=== PATIENT | female | born 1930 | race African-American/Black ===

== ENCOUNTER 2016-10-06 17:19 | Inpatient (IN) | payer OTHER ==
[~2016-10-06] VITALS: Ht 154.9 cm; Wt 49.6 kg
[~2016-10-06 17:19] MED LIST: LEVO88TA2 PO; LISI-604 PO; METF500T4 PO; NIFE90TA2 PO; SIMV20TA6 PO
[2016-10-06] MEDS ORDERED: SODIUM CHLORIDE 0.9% 1,000 ML IV ONE (18:38)
[2016-10-06] MEDS ORDERED: LORAZEPAM 2MG/ML CPJ IV ONE (18:45)
[2016-10-06 19:34] LABS: BASOPHILS % 0.4 % (0.0-2.0); EOSINOPHILS % 0.3 % (0.0-5.0); HEMATOCRIT. 30.5 % (36.0-48.0); HEMOGLOBIN. 10.1 g/dL (12.0-16.0); LYMPHOCYTES % 9.6 % (20.0-50.0); MEAN CORPUSCULAR HEMOGLOBIN 30.9 pg (28.0-32.0); MEAN CORPUSCULAR VOLUME 93.6 fL (81.0-99.0); MEAN PLATELET VOLUME 7.8 fl (7.4-10.4); MONOCYTES % 9.7 % (2.0-8.0); PLATELET 370 x1000/uL (130-400); RED BLOOD CELL COUNT 3.26 mill/uL (4.2-5.4); RED CELL DISTRIBUTION WIDTH 13.4 % (11.6-14.6)
[2016-10-06] MEDS ORDERED: ASPIRIN 300MG SUPP PR ONE (19:45)
[2016-10-06 19:48] LABS: AMMONIA 17 uMol/L (<32)
[2016-10-06 19:54] LABS: CARBON DIOXIDE 23 mEq/L (21-32); CHLORIDE 93 mEq/L (98-107); CREATINE KINASE 120 IU/L (26-192); ETHANOL BLOOD < 10 mg/dL
[2016-10-06] MEDS ORDERED: SODIUM BICARBONATE 8.4% 1 MEQ/ML 50ML SYR IV ONE (20:00)
[2016-10-06] MEDS ORDERED: CALCIUM CHLORIDE 1GM/10ML SYR IV ONE (20:00)
[2016-10-06] MEDS ORDERED: DIGOXIN 500MCG/2ML AMP IV NR (20:00)
[2016-10-06] MEDS ORDERED: SODIUM POLYSTYRENE SULFONATE 15 G/60 ML BOT PR ONE (20:00)
[2016-10-06 20:29] LABS: T4 FREE 1.7 ng/dL (0.76-1.46)
[2016-10-06] MEDS ORDERED: ACETAMINOPHEN 325MG TABLET PO PRN (20:45)
[2016-10-06] MEDS ORDERED: GUAIFENESIN 200MG/10ML SUGAR FREE UDC PO PRN (20:45)
[2016-10-06] MEDS ORDERED: DOCUSATE SODIUM 100MG CAPSULE PO PRN (20:45)
[2016-10-06] MEDS ORDERED: NITROGLYCERIN 0.4MG TABLET SL SL PRN (20:45)
[2016-10-06] MEDS ORDERED: ONDANSETRON HCL 4MG/2ML VIAL IV PRN (20:45)
[2016-10-06] MEDS ORDERED: CLONIDINE 0.1MG TABLET PO PRN (20:45)
[2016-10-06] MEDS ORDERED: IPRATROPIUM/ALBUTEROL 0.5-3(2.5)MG/3ML NEB INH PRN (20:45)
[2016-10-06] MEDS ORDERED: TRAMADOL 50MG TABLET PO PRN (20:45)
[2016-10-06] MEDS ORDERED: NA PHOS,M-B/NA PHOS,DI-BA ENEMA 118ML PR PRN (20:45)
[2016-10-06] MEDS ORDERED: MAGNESIUM/ALUMINUM HYDROXIDE/SIMETHICONE 30ML UDC PO PRN (20:45)
[2016-10-06 20:49] LABS: FOLIC ACID (FOLATE) SERUM 15.8 ng/mL (>5.38)
[2016-10-06] MEDS ORDERED: DEXTROSE 50% WATER 50ML SYRINGE IV PRN (21:35)
[2016-10-06] MEDS ORDERED: ENOXAPARIN 30MG/0.3ML SYR SUBCUT SCH (23:00)
[2016-10-06 23:30] VITALS: BP 154/88
[2016-10-06] MEDS ORDERED: FAMOTIDINE 20MG/2ML VIAL IV SCH (23:30)
[2016-10-06] MEDS: SODIUM CHLORIDE 0.9% 1,000 ML IV SCH (23:44)
[2016-10-06 23:55] LABS: TROPONIN I 0.15 ng/mL (0.00-0.04)
[2016-10-07] VITALS (11 sets, daily range): BP systolic 101–160; BP diastolic 52–96
[2016-10-07] MEDS ORDERED: LEVOFLOXACIN 500MG PREMIX 100 ML IV NR (02:00)
[2016-10-07 07:00] LABS: TROPONIN I 0.23 ng/mL (0.00-0.04)
[2016-10-07] MEDS: INSULIN LISPRO 100 UNITS/ML SUBCUT SCH ×2 (08:00→11:08)
[2016-10-07] MEDS: BLOOD SUGAR DIAGNOSTIC STRIP TEST SCH ×2 (08:18→11:08)
[2016-10-07] MEDS ORDERED: ASPIRIN 325MG EC TABLET PO SCH (09:00)
[2016-10-07] MEDS: SODIUM CHLORIDE 0.9% 1,000 ML IV SCH (11:05)
[2016-10-07 11:16] LABS: BASOPHILS % 0.8 % (0.0-2.0); EOSINOPHILS % 0.4 % (0.0-5.0); HEMATOCRIT. 28.7 % (36.0-48.0); HEMOGLOBIN. 9.8 g/dL (12.0-16.0); LYMPHOCYTES % 14.5 % (20.0-50.0); MEAN CORPUSCULAR HEMOGLOBIN 31.3 pg (28.0-32.0); MEAN CORPUSCULAR VOLUME 91.5 fL (81.0-99.0); MONOCYTES % 7.5 % (2.0-8.0); NEUTROPHILS % 76.8 % (40.0-76.0); PLATELET 361 x1000/uL (130-400); RED BLOOD CELL COUNT 3.14 mill/uL (4.2-5.4); RED CELL DISTRIBUTION WIDTH 13.6 % (11.6-14.6)
[2016-10-07 11:38] LABS: DIGOXIN 2.5 ng/mL (0.9-2.0)
[2016-10-07] MEDS ORDERED: DIGOXIN 500MCG/2ML AMP IV NR ×3 (12:00→18:00)
[2016-10-07] MEDS ORDERED: ASPIRIN 300MG SUPP PR NR (14:00)
[2016-10-07] MEDS ORDERED: DILTIAZEM HCL 5MG/ML 5ML VIAL IV PRN (15:30)
[2016-10-07] MEDS ORDERED: DIGOXIN 500MCG/2ML AMP IV SCH (18:00)
[2016-10-09] MEDS ORDERED: LEVOFLOXACIN 250MG PREMIX 50 ML IV SCH (02:00)
== END 2016-10-07 16:45 | disposition short-term general hospital (02) | DRG 64 ==
LOC: ER 17:53 → SUPCPDRO 19:55 → 5EST 20:00 → EDBEDREQSVC 20:37 → ENRESERV 20:56 → 5EST 22:52
PROVIDERS: ADMIT Internal Medicine; ATTEND Internal Medicine
DX: I63.9 Cerebral infarction, unspecified (principal); N17.0 Acute kidney failure with tubular necrosis; E43 Unspecified severe protein-calorie malnutrition; G92 Toxic encephalopathy; E87.1 Hypo-osmolality and hyponatremia; E03.9 Hypothyroidism, unspecified; E05.90 Thyrotoxicosis, unspecified without thyrotoxic crisis or storm; E11.9 Type 2 diabetes mellitus without complications; E78.00 Pure hypercholesterolemia, unspecified; E86.0 Dehydration; E87.5 Hyperkalemia; F03.90 Unspecified dementia, unspecified severity, without behavioral disturbance, psychotic disturbance, mood disturbance, and anxiety; I11.9 Hypertensive heart disease without heart failure; I48.0 Paroxysmal atrial fibrillation; Z79.899 Other long term (current) drug therapy; Z85.3 Personal history of malignant neoplasm of breast; Z79.84 Long term (current) use of oral hypoglycemic drugs; Z68.20 Body mass index [BMI] 20.0-20.9, adult; Z88.0 Allergy status to penicillin
CPT/HCPCS: 36415; 70450; 71010; 80048; 80053; 80061; 80162; 80307; 80329; 82140; 82550; 82553; 82607; 82746; 82962; 83036; 83880; 84439; 84443; 84484; 85025; 92610; 93005; 93970; 96361; 96374; 96375; 97162; 97166; 99285; G0482; J1160; J1650; J1956; J2060; J3490; J7030